=== PATIENT | male | born 1985 | race Caucasian/White ===

== ENCOUNTER 2019-05-12 19:59 | Emergency (ER) | payer SELFPAY ==
[2019-05-12 20:01] VITALS: BP 161/112
--- NOTE | 2019-05-12 20:02 | ER Report ---
History and Physical Time Seen By MD: 19:58 HPI/ROS CHIEF COMPLAINT: Nursing Home clearance HISTORY OF PRESENT ILLNESS: 33-year-old male brought in by police for usp clearance. Patient appears on-call intoxicated with slurred speech. Patient voices no complaints. Patient denies significant past medical history. REVIEW OF SYSTEMS: Respiratory: No cough, no dyspnea. Cardiovascular: No chest pain, no palpitations. Gastrointestinal: No vomiting, no abdominal pain. Musculoskeletal: No back pain. Allergies: Coded Allergies: No Known Drug Allergies (Unverified , 05/12/19) Home Meds No Active Prescriptions or Reported Meds Reviewed Nurses Notes: Yes Old Medical Records Reviewed: Yes Constitutional Vital Sign - Last 24 Hours 05/12/19 20:01 Temp 98.6 Pulse 131 Resp 14 B/P (MAP) 161/112 Pulse Ox 91 O2 Delivery Room Air Physical Exam General Appearance: The patient is alert, has no immediate need for airway protection and no current signs of toxicity. Vital signs stable, afebrile, pulse ox normal, palpation of the head and neck reveal no tenderness or trauma HEENT: Pupils equal and round no injection. TMs normal, oropharynx without dental trauma Respiratory: Chest is non tender, lungs are clear to auscultation. No chest wall tenderness Cardiac: regular rate and rhythm Gastrointestinal: Abdomen is soft and non tender, no masses, bowel sounds normal. Musculoskeletal: Neck: Neck is supple and non tender. Extremities have full range of motion and are non tender. Skin: No rashes or lesions. DIFFERENTIAL DIAGNOSIS: After history and physical exam differential diagnosis was considered for usp clearance, alcohol intoxication, polysubstance abuse Medical Decision Making ED Course/Re-evaluation ED Course Patient was admitted to an examination room. H&P was done. The differential diagnosis was considered. On clinical examination, patient appears grossly on- call intoxicated. He voices no complaints. He is medically cleared for usp admission. His vital signs are stable. Decision to Disposition Date: May 12, 2019 Decision to Disposition Time: 19:59 Depart Departure Latest Vital Signs Vital Signs Date Time Temp Pulse Resp B/P (MAP) Pulse Ox O2 Delivery O2 Flow Rate FiO2 05/12/19 20:01 98.6 131 14 161/112 91 Room Air Impression: Primary Impression: Medical clearance for incarceration Additional Impression: Alcohol intoxication Condition: Improved Disposition: [facility] TO [facility]RECTIONAL F New Scripts No Active Prescriptions or Reported Meds Patient Instructions: Alcohol Intoxication (ED) Additional Instructions: Medical cleared for usp admission Problem Qualifiers Additional Impression: Alcohol intoxication Complication of substance-induced condition: uncomplicated Qualified Codes: F10.920 - Alcohol use, unspecified with intoxication, uncomplicated SUSIE DOYLE DO May 12, 2019 20:02
== END 2019-05-12 20:21 ==
LOC: ER 20:03
DX: Z02.89 Encounter for other administrative examinations (principal); F10.920 Alcohol use, unspecified with intoxication, uncomplicated
CPT/HCPCS: 99281